=== PATIENT | female | born 1990 | race Caucasian/White ===

== ENCOUNTER → 2020-04-01 | Emergency (ER) | payer OTHER ==
[~2020-04-01] MED LIST: RABIES IMMUNE GLOBULIN 1500 INTERNATIONAL UNIT/5ML VIAL (90375) ONE; RABIES IMMUNE GLOBULIN 300 INTERNATIONAL UNITS/1ML VIAL (90375) ONE; RABIES VACCINE HUMAN 2.5 INTERNATIONAL UNITS/ML VIAL (90675) ONE
== END | disposition home or self-care (01) ==
LOC: M ED 19:31
DX: Z20.3 Contact with and (suspected) exposure to rabies (principal); Z23 Encounter for immunization

== ENCOUNTER 2020-04-04 13:36 | Emergency (ER) | payer OTHER ==
[2020-04-04] MEDS ORDERED: RABIES VACCINE HUMAN 2.5 INTERNATIONAL UNITS/ML VIAL (90675) As Ordered ONE (13:50)
[2020-04-04] MEDS ORDERED: RABIES VACCINE HUMAN 2.5 INTERNATIONAL UNITS/ML VIAL (90675) ONE (13:50)
== END 2020-04-04 14:35 | disposition home or self-care (01) ==
LOC: M ED 13:36
DX: Z20.3 Contact with and (suspected) exposure to rabies (principal); Z23 Encounter for immunization

== ENCOUNTER → 2020-04-08 | Emergency (ER) | payer OTHER ==
[~2020-04-08] MED LIST changes: -RABIES IMMUNE GLOBULIN 1500 INTERNATIONAL UNIT/5ML VIAL (90375) ONE; -RABIES IMMUNE GLOBULIN 300 INTERNATIONAL UNITS/1ML VIAL (90375) ONE; +RABIES VACCINE HUMAN 2.5 INTERNATIONAL UNITS/ML VIAL (90675) As Ordered ONE; -RABIES VACCINE HUMAN 2.5 INTERNATIONAL UNITS/ML VIAL (90675) ONE
== END | disposition home or self-care (01) ==
LOC: M ED 14:20
DX: Z20.3 Contact with and (suspected) exposure to rabies (principal); Z23 Encounter for immunization

== ENCOUNTER 2020-04-15 13:27 | Emergency (ER) | payer OTHER ==
[~2020-04-15] VITALS: Ht 177.8 cm; Wt 81.8 kg
[2020-04-15 13:27] VITALS: BP 118/66
[2020-04-15] MEDS ORDERED: RABIES VACCINE HUMAN 2.5 INTERNATIONAL UNITS/ML VIAL (90675) IM ONE (14:00)
== END 2020-04-15 16:05 | disposition home or self-care (01) ==
LOC: M ED 13:27
DX: Z23 Encounter for immunization (principal); Z20.3 Contact with and (suspected) exposure to rabies